=== PATIENT | male | born 1985 | race Two or more races ===

== ENCOUNTER 2020-04-20 10:00 | Day surgery (SDC) | payer SELFPAY ==
[~2020-04-20 10:00] MED LIST: DEXAMETHASONE SOD PHOSPHATE INJ 4 MG/1 ML VIAL ONE; GLYCOPYRROLATE 1 MG/5 ML VIAL ONE; KETOROLAC TROMETHAMINE 60 MG/2 ML SDV ONE; LIDOCAINE 2% INJ-PF (20 MG/ML) 2 ML AMPUL ONE; METOCLOPRAMIDE HCL INJ/PF 10 MG/2 ML SDV ONE; NEOSTIGMINE METHYLSULFATE 10 MG/10 ML VIAL ONE; ONDANSETRON HCL INJ/PF 4 MG/2 ML SDV ONE; ROCURONIUM BROMIDE INJ 50 MG/5 ML VIAL IV ONE
[2020-04-20] MEDS ORDERED: ONDANSETRON HCL INJ/PF 4 MG/2 ML SDV IV ONE (10:26)
[2020-04-20] MEDS ORDERED: NORMAL SALINE 1000 ML 1,000 ML IV ONE (10:28)
--- NOTE | 2020-04-20 10:31 | ER Document Report ---
ED Medical Screen (RME) - General Chief Complaint: Abdominal Pain Stated Complaint: ABDOMINAL PAIN Time Seen by Provider: 04/20/20 10:19 - HPI Notes: 04/20/20 10:28 34 year old male to the ED with C/o acute onset abdominal pain that began this morning. States he is very uncomfortable and cannot find a position of comfort. Denies NVD. DEnies fevers or chills. Never had a kidney stone. States it started in his right flank and radiates into his lower abdomen. Admits to some urinary frequency this morning but no hematuria. Never had surgery on his abdomen. He is panamanian speaking only so Martti was use. On brief medical screening exam, patient is in significant pain distress, colicky in appearance, rocking in chair. Has bilateral CVAT. + RLQ, suprapubic, and LLQ abdominal pain. abdomen is not rigid. I have performed a brief medical screening exam on the patient and determined he needs further care by mainside provider. I have placed initial orders to include CT, medications, lab work for the patient. Advised charge of the patient and took him directly to Bed 21. Physical Exam - Vital signs Vitals: Temp Pulse Resp BP Pulse Ox 97.5 F 69 20 144/78 H 100 04/20/20 10:14 04/20/20 10:14 04/20/20 10:14 04/20/20 10:14 04/20/20 10:14 Course - Vital Signs Vital signs: Temp Pulse Resp BP Pulse Ox 97.5 F 69 20 144/78 H 100 04/20/20 10:14 04/20/20 10:14 04/20/20 10:14 04/20/20 10:14 04/20/20 10:14
--- NOTE | 2020-04-20 10:54 | RADIOLOGY REPORT (SQ) ---
EXAM DESCRIPTION: CT ABD/PELVIS NO ORAL OR IV IMAGES COMPLETED DATE/TIME: 04/20/2020 10:44 am REASON FOR STUDY: flank pain, colicky, eval for kidney stone COMPARISON: None. TECHNIQUE: CT scan of the abdomen and pelvis performed without intravenous or oral contrast. Images reviewed with lung, soft tissue, and bone windows. Reconstructed coronal and sagittal MPR images revi ewed. All images stored on PACS. All CT scanners at this facility use dose modulation, iterative reconstruction, and/or weight based d osing when appropriate to reduce radiation dose to as low as reasonably achievable (ALARA). [facility]: Dose Right [facility]: CareDose [facility]: Dose Right [facility]: Teradose 4D [facility]: Smart TriggerMail RADIATION DOSE: CT Rad equipment meets quality standard of care and radiation dose reduction techniq ues were employed. CTDIvol: 6.5 mGy. DLP: 373 mGy-cm.mGy. LIMITATIONS: None. FINDINGS: LOWER CHEST: No significant findings. No nodules or infiltrates. NON-CONTRASTED LIVER, SPLEEN, ADRENALS: Evaluation limited by lack of IV contrast. No identified sign ificant masses. PANCREAS: No masses. No peripancreatic inflammatory changes. GALLBLADDER: No identified stones by CT criteria. No inflammatory changes to suggest cholecystitis. RIGHT KIDNEY AND URETER: No solid masses. No significant calcification. No hydronephrosis or hydroure ter. LEFT KIDNEY AND URETER: No solid masses. No significant calcification. No hydronephrosis or hydrouret er. AORTA AND RETROPERITONEUM: No aneurysm. No retroperitoneal masses or adenopathy. BOWEL AND PERITONEAL CAVITY: No obvious masses or inflammatory changes. No free fluid. APPENDIX: Inflamed dilated appendix with surrounding fat stranding but no abscess or perforation. PELVIS, BLADDER, AND ABDOMINAL WALL:No abnormal masses. No free fluid. Bladder normal. BONES: No significant findings. OTHER: No other significant finding. IMPRESSION: 1. Acute uncomplicated appendicitis without evidence of periappendiceal abscess or rupture. TECHNICAL DOCUMENTATION: JOB ID: [id number] Quality ID # [id number]: Final reports with documentation of one or more dose reduction techniques (e.g., Au tomated exposure control, adjustment of the mA and/or kV according to patient size, use of iterative reconstruction technique) 2010 [employer]- All Rights Reserved Reading location - IP/workstation name: [email or web address]
[2020-04-20] MEDS: KETOROLAC TROMETHAMINE INJ/PF 30 MG/1 ML SDV IV ONE ×2 (10:57→11:02)
[2020-04-20] MEDS ORDERED: PIPERACILLIN/TAZOBACTAM 3.375 GM VIAL IV ONE (11:07)
[2020-04-20] MEDS ORDERED: MORPHINE SULFATE 10 MG/ML INJ IV ONE (11:07)
[2020-04-20 11:10] LABS: ABSOLUTE LYMPHOCYTES (AUTO) 1.2 10^3/uL (0.5-4.7); ABSOLUTE MONOCYTES (AUTO) 0.9 10^3/uL (0.1-1.4); ABSOLUTE NEUT (AUTO) 9.3 10^3/uL (1.7-8.2); BASOPHILS % (AUTO) 0.3 % (0-2); EOSINOPHILS % (AUTO) 0.1 % (0-6); HEMATOCRIT 40.9 % (37.9-51.0); HEMOGLOBIN 14.8 g/dL (13.5-17.0); LYMPHOCYTES % (AUTO) 10.4 % (13-45); MEAN CORPUSCULAR HEMOGLOBIN 32.2 pg (27.0-33.4); MEAN CORPUSCULAR HGB CONC 36.2 g/dL (32.0-36.0); MEAN CORPUSCULAR VOLUME 89 fl (80-97); MONOCYTES % (AUTO) 8.1 % (3-13); PLATELET COUNT 167 10^3/uL (150-450); RED BLOOD COUNT 4.59 10^6/uL (4.35-5.55); RED CELL DISTRIBUTION WIDTH 12.6 % (11.5-14.0); SEGMENTED NEUTROPHILS % (AUTO) 81.1 % (42-78); TOTAL CELLS COUNTED % (AUTO) 100 %; WHITE BLOOD COUNT 11.4 10^3/uL (4.0-10.5)
--- NOTE | 2020-04-20 11:13 | ER Document Report ---
ED GI/ - General Chief Complaint: Abdominal Pain Stated Complaint: ABDOMINAL PAIN Time Seen by Provider: 04/20/20 10:19 Notes: Patient is a 34-year-old male, Macedonian-speaking who presents emergency department with acute onset of abdominal pain. Patient reports around 3 AM this morning he developed generalized abdominal pain. Denies medical or surgical history. Patient reports that he is unable to find a position of comfort and was in severe pain. Patient reports he attempted to drink tea around 8 AM this morning. Patient denies vomiting or diarrhea. 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 - Related Data Allergies/Adverse Reactions: No Known Allergies Allergy (Unverified 04/20/20 11:08) Past Medical History - General Information source: Patient - Social History Smoking Status: Unknown if Ever Smoked Lives with: Family Family History: None - Past Medical History Cardiac Medical History: Reports: None Pulmonary Medical History: Reports: None EENT Medical History: Reports: None Neurological Medical History: Reports: None Endocrine Medical History: Reports: None Renal/ Medical History: Reports: None Malignancy Medical History: Reports None GI Medical History: Reports: None Musculoskeletal Medical History: Reports None Skin Medical History: Reports None Psychiatric Medical History: Reports: None Traumatic Medical History: Reports: None Infectious Medical History: Reports: None Surgical Hx: Negative Review of Systems - Review of Systems Constitutional: No symptoms reported EENT: No symptoms reported Cardiovascular: No symptoms reported Respiratory: No symptoms reported Gastrointestinal: See HPI Genitourinary: No symptoms reported Male Genitourinary: No symptoms reported Musculoskeletal: No symptoms reported Skin: No symptoms reported Hematologic/Lymphatic: No symptoms reported Neurological/Psychological: No symptoms reported Physical Exam - Vital signs Vitals: Temp Pulse Resp BP Pulse Ox 97.5 F 69 20 144/78 H 100 04/20/20 10:14 04/20/20 10:14 04/20/20 10:14 04/20/20 10:14 04/20/20 10:14 Interpretation: Hypertensive - Notes Notes: GENERAL: Unable to find position of comfort, tearful HEAD: Atraumatic, normocephalic. EYES: Pupils equal round and reactive to light, extraocular movements intact, sclera anicteric, conjunctiva are normal. ENT: Nares patent, oropharynx clear without exudates. Moist mucous membranes. NECK: Normal range of motion, supple without lymphadenopathy or JVD. LUNGS: Breath sounds clear to auscultation bilaterally and equal. No wheezes rales or rhonchi. HEART: Regular rate and rhythm without murmurs, rubs or gallops. ABDOMEN: Soft, extremely tender throughout, hypoactive bowel sounds. + guarding. No masses appreciated. BACK: No cervical, thoracic, lumbar midline tenderness. No saddle anesthesia, normal distal neurovascular exam. GENITOURINARY: Deferred. EXTREMITIES: Normal range of motion, no pitting or edema. No clubbing or cyanosis. NEUROLOGICAL: Cranial nerves II through XII grossly intact. Normal speech, normal gait. PSYCH: Normal mood, normal affect. SKIN: Warm, Dry, normal turgor, no rashes or lesions noted. Course - Re-evaluation Re-evalutation: 04/20/20 11:13 Martjuarez was used to obtain patient history and performed physical exam. Patient is a healthy 34-year-old male with no past medical history, does not take daily medications. Patient last n.p.o. at 8 AM as he did drink some tea. Patient CT has already resulted and shows an acute appendicitis. Patient appears uncomfortable. I did inform him via the tracer bullet charging machine operator that I will be giving him pain medication as well as initiating IV antibiotics. Patient denies allergies. Will order a rapid Covid as well. 11:06; Attempted to call Dr. Zapata, surgicalist, no answer 11:11; Attempted to call Dr. Zapata, surgicalist, no answer 11:30; Spoke with Dr. Zapata, will be down to see patient. 11:34; Dr. Zapata at bedside. Patient resting comfortably, no acute distress at this time. Rapid COVID pending. - Vital Signs Vital signs: Temp Pulse Resp BP Pulse Ox 97.5 F 69 20 144/78 H 100 04/20/20 10:14 04/20/20 10:14 04/20/20 10:14 04/20/20 10:14 04/20/20 10:14 - Laboratory Result Diagrams: 04/20/20 11:00 04/20/20 11:00 Laboratory results interpreted by me: 04/20/20 04/20/20 11:00 11:00 WBC 11.4 H MCHC 36.2 H Lymph % (Auto) 10.4 L Absolute Neuts (auto) 9.3 H Seg Neutrophils % 81.1 H Sodium 136.4 L Total Bilirubin 1.6 H - Diagnostic Test Radiology reviewed: Reports reviewed Radiology results interpreted by me: 04/20/20 11:13 Abdomen/Pelvis CT 04/20/20 10:25 IMPRESSION: 1. Acute uncomplicated appendicitis without evidence of periappendiceal abscess or rupture. Discharge - Discharge Clinical Impression: Appendicitis Qualifiers: Appendicitis type: acute appendicitis Acute appendicitis type: unspecified acute appendicitis type Qualified Code(s): K35.80 - Unspecified acute appendicitis Condition: Stable Disposition: OTHER Admitting Provider: Surgicalist Unit Admitted: OR
[2020-04-20 11:31] LABS: ALBUMIN 4.8 g/dL (3.5-5.0); ALKALINE PHOSPHATASE 89 U/L (38-126); ANION GAP 12 (5-19); ASPARTATE AMINO TRANSFERASE 31 U/L (17-59); BILIRUBIN,TOTAL 1.6 mg/dL (0.2-1.3); BLOOD UREA NITROGEN 15 mg/dL (7-20); CARBON DIOXIDE 22 mmol/L (22-30); CHLORIDE 102 mmol/L (98-107); GLUCOSE 88 mg/dL (75-110); POTASSIUM 3.7 mmol/L (3.6-5.0); TOTAL PROTEIN 7.6 g/dL (6.3-8.2)
--- NOTE | 2020-04-20 11:47 | PDOC H&P ---
History of Present Illness History of Present Illness: WALTER MENDEZ is a 34 year old male Patient is a 34-year-old male, Irish-speaking who presents emergency department with acute onset of abdominal pain. Patient reports around 3 AM this morning he developed generalized abdominal pain. Denies medical or surgical history. Patient reports that he is unable to find a position of comfort and was in severe pain. Patient reports he attempted to drink tea around 8 AM this morning. Patient denies vomiting or diarrhea Past Medical History Cardiac Medical History: Reports: None Pulmonary Medical History: Reports: None EENT Medical History: Reports: None Neurological Medical History: Reports: None Endocrine Medical History: Reports: None Renal/ Medical History: Reports: None Malignancy Medical History: Reports: None GI Medical History: Reports: None Musculoskeltal Medical History: Reports: None Skin Medical History: Reports: None Psychiatric Medical History: Reports: None Traumatic Medical History: Reports: None Infectious Medical History: Reports: None Past Surgical History Past Surgical History: Reports: None Social History Lives with: Family Smoking Status: Unknown if Ever Smoked Family History Family History: None Parental Family History Reviewed: No Children Family History Reviewed: NA Sibling(s) Family History Reviewed.: NA Medication/Allergy Allergies/Adverse Reactions: No Known Allergies Allergy (Unverified 04/20/20 11:08) Review of Systems Constitutional: PRESENT: anorexia, fatigue Eyes: ABSENT: as per HPI, visual disturbances, other Ears: ABSENT: as per HPI, hearing changes, other Nose, Mouth, and Throat: ABSENT: as per HPI, headache(s), mouth pain, sore throat, vertigo, other Breasts: ABSENT: as per HPI, other Cardiovascular: ABSENT: as per HPI, chest pain, dyspnea on exertion, edema, orthropnea, palpitations, other Respiratory: ABSENT: as per HPI, cough, dyspnea, hemoptysis, sputum, other Gastrointestinal: PRESENT: as per HPI Genitourinary: ABSENT: as per HPI, difficulty urinating, dysuria, hematuria, nocturia, other Musculoskeletal: ABSENT: as per HPI, back pain, deformity, joint swelling, muscle weakness, other Integumentary: ABSENT: as per HPI, diaphoresis, erythema, lesions, pruritus, rash, wounds, other Neurological: ABSENT: as per HPI, abnormal gait, abnormal movements, abnormal speech, confusion, convulsions, dizziness, focal weakness, frequent falls, lack of coordination, memory loss, numbness, paresthesias, restless legs, syncope, tingling, tremor(s), vertigo, weakness, other Psychiatric: ABSENT: as per HPI, anxiety, depression, hallucinations, homidical ideation, suicidal ideation, other Endocrine: ABSENT: as per HPI, cold intolerance, flushing, heat intolerance, menstrual abnormalities, polydipsia, polyphagia, polyuria, other Hematologic/Lymphatic: ABSENT: as per HPI, easy bleeding, easy bruising, lymphadenopathy, other Allergic/Immunologic: ABSENT: as per HPI, seasonal rhinorrhea, other Physical Exam Vital Signs: Temp Pulse Resp BP Pulse Ox 97.5 F 69 20 144/78 H 100 04/20/20 10:14 04/20/20 10:14 04/20/20 10:14 04/20/20 10:14 04/20/20 10:14 Intake & Output 04/19/20 04/20/20 04/21/20 07:59 06:59 06:59 Weight 83.5 kg General appearance: PRESENT: no acute distress Head exam: PRESENT: normocephalic Eye exam: PRESENT: EOMI Ear exam: PRESENT: normal external ear exam Mouth exam: PRESENT: moist Neck exam: PRESENT: full ROM Respiratory exam: PRESENT: clear to auscultation cary Cardiovascular exam: PRESENT: RRR Pulses: PRESENT: normal radial pulses, normal femoral pulses Vascular exam: PRESENT: normal capillary refill Breast: PRESENT: Normal GI/Abdominal exam: PRESENT: tenderness - RLQ Rectal exam: PRESENT: deferred Extremities exam: PRESENT: full ROM Musculoskeletal exam: PRESENT: full ROM Neurological exam: PRESENT: alert, awake, oriented to person, oriented to place Psychiatric exam: PRESENT: appropriate affect Skin exam: PRESENT: dry Results Laboratory Results: 04/20/20 11:00 04/20/20 11:00 04/20/20 04/20/20 11:00 11:00 WBC 11.4 H RBC 4.59 Hgb 14.8 Hct 40.9 MCV 89 MCH 32.2 MCHC 36.2 H RDW 12.6 Plt Count 167 Seg Neutrophils % 81.1 H Sodium 136.4 L Potassium 3.7 Chloride 102 Carbon Dioxide 22 Anion Gap 12 BUN 15 Creatinine 0.72 Est GFR ( Amer) > 60 Glucose 88 Calcium 10.0 Total Bilirubin 1.6 H AST 31 Alkaline Phosphatase 89 Total Protein 7.6 Albumin 4.8 Lipase 66.3 Impressions: Abdomen/Pelvis CT 04/20/20 10:25 IMPRESSION: 1. Acute uncomplicated appendicitis without evidence of periappendiceal abscess or rupture. Assessment & Plan - Time Anticipated Discharge Disposition: Home, Self Care Anticipated Discharge Timeframe: within 24 hours - Plan Summary Plan Summary: ACUTE APPENDICITIS PLAN IS FOR LAPAROSCOIC APPENDECTOMY
[2020-04-20] MEDS ORDERED: HYDROMORPHONE HCL INJ/PF 2 MG/ML AMPULE ONE (13:22)
[2020-04-20] MEDS ORDERED: MIDAZOLAM 2 MG/2 ML INJ ONE (13:22)
[2020-04-20] MEDS ORDERED: PROPOFOL INJ 200 MG/20 ML VIAL IV ONE (13:23)
[2020-04-20] MEDS ORDERED: BUPIVACAINE INJ/PF LIPOSOME/PF 266 MG/20 ML SDV ONE (14:06)
[2020-04-20] MEDS ORDERED: ONDANSETRON HCL INJ/PF 4 MG/2 ML SDV IV PRN (14:28)
[2020-04-20] MEDS ORDERED: DIPHENHYDRAMINE HCL 50 MG/ML VIAL IV PRN (14:28)
[2020-04-20] MEDS ORDERED: OXYCODONE-ACETAMINOPHEN 5-325 MG TABLET PO PRN ×2 (14:28)
[2020-04-20] MEDS ORDERED: FENTANYL CITRATE INJ/PF 100 MCG/2 ML AMPUL IV PRN ×3 (14:28)
[2020-04-20] MEDS ORDERED: MEPERIDINE HCL/PF INJ 25 MG/1 ML DISP.SYRIN IV PRN (14:28)
[2020-04-20] MEDS ORDERED: PROMETHAZINE HCL INJ 25 MG/1 ML VIAL IV PRN ×2 (14:28)
--- NOTE | 2020-04-20 15:39 | Operative Report ---
Nonrecallable Operative Report DATE OF SURGERY: 04/20/20 PREOPERATIVE DIAGNOSIS: Acute appendicitis POSTOPERATIVE DIAGNOSIS: Acute appendicitis OPERATION: Laparoscopic appendectomy SURGEON: RAF DUFFY ANESTHESIA: GA - Jodi TISSUE REMOVED OR ALTERED: Appendix COMPLICATIONS: None none ESTIMATED BLOOD LOSS: 50 cc INTRAOPERATIVE FINDINGS: Acute appendicitis PROCEDURE: Patient was brought to the operating awake alert stable condition placed in the operative table supine position induced under general anesthesia intubated. After appropriate timeout and site verification the procedure commenced. The abdomen was prepped and draped in usual sterile fashion. A varies needle was placed into the umbilicus and the abdomen was insufflated with 6 L of CO2 gas. Infraumbilical 5 mm incision was made with a 15 blade and a 5 mm port placed in the abdominal cavity intra-abdominal visualization revealed no evidence of a varies needle or trocar injury. A suprapubic 5 mm port was placed under direct vision a 10 mm left lower quadrant port. The pelvis was visualized it was placed on traction the mesoappendix was divided with 1 firing of the Endo BINU stapler with a white load and we came across the base of the appendix on the cecum with 1 firing of the Endo BINU stapler with a blue load. He was placed in an Endobag and removed through the left lower quadrant port site. Right lower quadrant was irrigated normal saline suctioned dry hemostasis noted to be intact and the ports were removed. The fascial defect left lower quadrant was closed with 0 Vicryl all 3 skin incisions were closed with intracuticular 4-0 Biosyn There is strips completed the procedure. Estimated blood loss was approximately 50 cc sponge needle counts were correct x2
--- NOTE | 2020-04-20 15:46 | Discharge Summary ---
Discharge Summary (SDC) - Discharge Final Diagnosis: Acute appendicitis Date of Surgery: 04/20/20 Discharge Date: 04/20/20 Condition: Good Forms: ASU Anesthesia D/C Instruction, Discharge POC-Surgical Service Prescriptions: Oxycodone HCl/Acetaminophen [Percocet 10-325 Mg Tablet] 1 each PO Q6HP PRN #10 tablet PRN Reason: Discharge Diet: As Tolerated Discharge Activity: Activity As Tolerated, No Lifting Over 10 Pounds Report the Following to Your Physician Immediately: Fever over 101 Degrees, Unusual Bleeding - pt needs a f/u in surgery clinic in 7-10 days.
[2020-04-20 17:15] VITALS: BP 113/69
== END 2020-04-20 17:18 | disposition home or self-care (01) ==
LOC: ER 10:00 → UNDOADMIN 11:56 → EH 11:56 → INOR 12:59 → OROUT 12:59
PROVIDERS: ATTEND Surgery
DX: K35.80 Unspecified acute appendicitis (principal); K38.8 Other specified diseases of appendix; R35.0 Frequency of micturition; R03.0 Elevated blood-pressure reading, without diagnosis of hypertension; Z03.818 Encounter for observation for suspected exposure to other biological agents ruled out
CPT/HCPCS: 99285; 96375; 96365; 36415; 83690; 85025; 87635; 80053; 88304 ×2; 74176; 99140; 00840; 44970; J2250; J3490 ×3; J1100; J1885; J2765; J2270; J2710; J1170; J2405; J7030; J2704; J2543; C9290; C9803; 840